=== PATIENT | female | born 1975 | race Caucasian/White ===

== ENCOUNTER 2024-06-02 06:33 | Observation (INO) | payer OTHER ==
[2024-06-02] MEDS ORDERED: fentaNYL 50 mcg/mL 1 mL Vial ONE ×4 (06:45→14:53)
[2024-06-02] MEDS ORDERED: Ondansetron PF 4 MG/2 ML Vial ONE ×2 (06:45→13:16)
[2024-06-02 07:13] LABS: BHCG - Serum Negative (NEGATIVE); Pregs Control Background? CLEAR/WHITE (CLR/WHITE); Pregs Control Bar Appear? YES (CONTROL BAR)
[2024-06-02] MEDS ORDERED: CEFAZOLIN 2 GM in Sodium Chloride 0.9% 100 ML IVPB SCH (11:45)
[2024-06-02] MEDS ORDERED: EPINEPHrine 1 MG/ML VIAL ONE (12:46)
[2024-06-02] MEDS ORDERED: Bupivacaine PF 0.5% 30 ML VIAL ONE (12:46)
[2024-06-02] MEDS ORDERED: CEFAZOLIN 2 GM VIAL ONE (13:13)
[2024-06-02] MEDS ORDERED: SUGAMMADEX SODIUM 200 MG/2 ML VIAL ONE (13:15)
[2024-06-02] MEDS ORDERED: Famotidine/PF 20 mg/2ml Vial ONE (13:15)
[2024-06-02] MEDS ORDERED: Rocuronium Bromide 10 MG/ML (10ML VIAL) ONE (13:16)
[2024-06-02] MEDS ORDERED: Ketorolac Tromethamine 30 MG (1 mL) VIAL ONE (13:16)
[2024-06-02] MEDS ORDERED: PROPOFOL 20 ML ONE (13:16)
[2024-06-02] MEDS ORDERED: Dexamethasone 4 mg/ml Vial ONE (13:16)
[2024-06-02] MEDS ORDERED: Lidocaine 2% PF 5 ML VIAL ONE (13:16)
[2024-06-02] MEDS ORDERED: Tranexamic Acid 1,000 MG/10 ML VIAL ONE (14:28)
[2024-06-02] MEDS: Lactated Ringer's 1,000 ML IV SCH (14:38)
[2024-06-02] MEDS ORDERED: Promethazine HCl 25 MG/ML VIAL IM PRN (15:09)
[2024-06-02] MEDS ORDERED: Ondansetron PF 4 MG/2 ML Vial IVP PRN (15:09)
[2024-06-02] MEDS ORDERED: diphenhydrAMINE 25 MG CAP PO PRN (15:09)
[2024-06-02] MEDS ORDERED: Simethicone Chewable 80 MG TAB PO PRN (15:09)
[2024-06-02] MEDS: Morphine 4 MG/ML VIAL SLOW IVP PRN (16:16)
[2024-06-02] MEDS: Sodium Chloride 0.9% 1,000 ML IV SCH (16:17)
[2024-06-02] MEDS: HYDROcodone/Acetaminophen 5/325 mg Tablet PO PRN (18:37)
[2024-06-02 19:15] LABS: Hematocrit 38.5 % (34.9-44.5); Hemoglobin 12.6 g/dL (12.0-15.5); Mean Corpuscular HGB CONC 32.7 g/dL (32.0-36.0); Mean Corpuscular Hemoglobin 28.7 pg (27.0-33.0); Mean Corpuscular Volume 87.7 fL (81.6-98.3); Mean Platelet Volume 10.4 fL (7.4-10.4); Platelet Count 242 10x3/uL (150-450); RBC Distribution Width 13.3 % (11.5-14.5); Red Blood Cell (RBC) Count 4.39 10x6/uL (3.90-5.03)
[2024-06-02 19:59] VITALS: TEMP 98.3
[2024-06-02] MEDS: Ibuprofen 800 MG TAB PO SCH (20:38)
[2024-06-02 21:03] VITALS: BP 101/58
== END 2024-06-02 21:03 | disposition home or self-care (01) ==
LOC: CSHERS 06:33 → INTOOBSV 10:07 → CSHPP 10:07
PROVIDERS: ADMIT Obstetrics & Gynecology; ATTEND Obstetrics & Gynecology
PROC: 0UT64ZZ Resection of Left Fallopian Tube, Percutaneous Endoscopic Approach (ICD-10-PCS; principal; 2024-06-02)
PROC: 0UT14ZZ Resection of Left Ovary, Percutaneous Endoscopic Approach (ICD-10-PCS; 2024-06-02)
DX: N83.512 Torsion of left ovary and ovarian pedicle (principal); D19.9 Benign neoplasm of mesothelial tissue, unspecified; N83.202 Unspecified ovarian cyst, left side; Z79.899 Other long term (current) drug therapy; F90.9 Attention-deficit hyperactivity disorder, unspecified type
CPT/HCPCS: 36415; 76856; 83690; 84703; 86850; 86900; 86901; 88112; 88305; 93005; 93976; 96374; 96375; 96376; J0171; J0665; J1100; J1885; J2001; J2270; J2405; J2704; J3010; S0028